=== PATIENT | female | born 1950 | race American Indian/Alaskan Native ===

== ENCOUNTER 2017-09-24 06:12 | Day surgery (SDC) | payer MEDICARE ==
[2017-09-24] MEDS ORDERED: ECOTRIN PO ONE ×2 (06:42→06:47)
[2017-09-24] MEDS ORDERED: NACL 0.9% 500 ML 500 ML ONE (06:46)
[2017-09-24] MEDS ORDERED: NACL 0.9% 500 ML 500 ML IV SCH (07:00)
[2017-09-24 07:14] LABS: Basophils # (Auto) 0.1 K/mm3 (0.0-0.1); Basophils % (Auto) 0.8 % (0.0-1.8); Eosinophils # (Auto) 0.3 K/mm3 (0.0-0.4); Eosinophils % (Auto) 2.7 % (0.0-4.3); Hematocrit 42.4 % (30.3-42.9); Hemoglobin 13.5 gm/dl (10.1-14.3); Lymphocytes # (Auto) 3.3 K/mm3 (1.2-5.4); Lymphocytes % (Auto) 33.8 % (13.4-35.0); Mean Corpuscular HGB Conc 32 % (30-34); Mean Corpuscular Hemoglobin 28 pg (28-32); Mean Corpuscular Volume 87 fl (79-97); Monocytes # (Auto) 0.7 K/mm3 (0.0-0.8); Monocytes % (Auto) 7.5 % (0.0-7.3); Platelet Count 271 K/mm3 (140-440); Red Blood Count 4.85 M/mm3 (3.65-5.03)
[2017-09-24 07:31] LABS: BUN/Creatinine Ratio 16; Blood Urea Nitrogen 13 mg/dL (7-17); Calcium 9.6 mg/dL (8.4-10.2); Hemolysis Index 9
[2017-09-24] MEDS ORDERED: HEPARIN/NS 5000 UNIT/500ML(CATH LAB) 1,000 ML IR ONE (08:32)
[2017-09-24] MEDS ORDERED: NITROGLYCERIN SYRINGE 3 ML ONE (08:33)
[2017-09-24] MEDS: VERSED ONE ×2 (08:52→08:55)
[2017-09-24] MEDS: SUBLIMAZE ONE ×3 (08:52→09:03)
[2017-09-24] MEDS: XYLOCAINE 2% INFILTRATI ONE ×2 (08:54→08:57)
[2017-09-24] MEDS: CALAN ONE ×2 (08:54→09:03)
[2017-09-24] MEDS: HEPARIN 10,000 UNITS/10 ML ONE ×2 (08:55→09:03)
[2017-09-24 12:01] VITALS: BP 148/73
--- NOTE | 2017-09-30 09:37 | Cardiac Catherization Report ---
HISTORY: The patient has a history of coronary artery disease, underwent a stress thallium study that was abnormal and has Class 3 angina symptoms, on medications. PROCEDURE: Left heart catheterization, ventriculography, and coronary angiography via the right radial artery using 5-Vietnamese Alexis catheters and pigtail catheter. COMPLICATIONS: None. ESTIMATED BLOOD LOSS: 10-20 mL. PREPROCEDURE DIAGNOSIS: Class 3 angina. POSTPROCEDURE DIAGNOSIS: Class 3 angina. SEDATION: Intravenous Versed and fentanyl. TISSUE SAMPLES: None. HEMODYNAMICS: Central aortic pressure , left ventricular pressure 157/21 and with end diastolic pressure 25. ANGIOGRAPHIC RESULTS: 1. Left ventricle: The ventriculogram reveals a normal sized left ventricle with normal contractility. The ejection fraction is approximately 65% and there appears to be left ventricular hypertrophy. 2. Right coronary artery: This is a dominant vessel and it is diffusely diseased. There is a proximal 30% stenosis. The mid portion is free of severe lesions. The early distal portion has a long 70% stenosis. The posterolateral branch and the PDA are fairly small in caliber and diffusely narrowed. The mid to distal portion of the PDA contains a 90% stenosis. The posterolateral branch contains a 50% stenosis just past the takeoff of the PDA. 3. Left coronary artery: This vessel is diffusely irregular. The left main is free of remarkable disease. The circumflex has no significant lesions. The LAD system is diffusely irregular with a early distal 30% stenosis. The first diagonal branch has a very proximal 70% stenosis. FINAL IMPRESSION: Class 3 angina in a patient with normal left ventricular function, evidence of left ventricular hypertrophy and severe disease in the distal right coronary artery. This segment of the vessel is diffusely diseased and does not appear to be easily amenable to PCI. We will recommend medical therapy and CAD risk factor modification for now. Office followup within 1 week. JOB# [id number] EDWARD/NTS
== END 2017-09-24 06:13 | disposition home or self-care (01) ==
LOC: CATHLABREC 06:12
PROVIDERS: ATTEND Internal Medicine
DX: I25.118 Atherosclerotic heart disease of native coronary artery with other forms of angina pectoris (principal); I10 Essential (primary) hypertension; E78.5 Hyperlipidemia, unspecified; F41.9 Anxiety disorder, unspecified; E66.3 Overweight; Z68.41 Body mass index [BMI] 40.0-44.9, adult; Z88.2 Allergy status to sulfonamides; Z79.82 Long term (current) use of aspirin; Z87.891 Personal history of nicotine dependence
CPT/HCPCS: 36415; 80048; 85025; 85610; 85730; 93005; 93010; 93458; 99156; 99157; C1769; C1894; J1644; J2250; J3010; J7040; Q9967